=== PATIENT | female | born 1990 ===

== ENCOUNTER 2020-05-11 07:00 | Day surgery (SDC) | payer OTHER ==
[~2020-05-11 07:00] MED LIST: CHILDREN'S15 MG/1 M2; FOLIC ACID0.8 M1
== END 2020-05-11 13:00 | disposition home or self-care (01) ==
LOC: CIR.AMB 07:00 → U 07:00 → CIR.AMB 10:00
PROVIDERS: ATTEND Obstetrics & Gynecology Obstetrics
DX: N72 Inflammatory disease of cervix uteri (principal); Z20.828 Contact with and (suspected) exposure to other viral communicable diseases

== ENCOUNTER 2022-03-16 10:20 | Emergency (ER) | payer OTHER ==
[~2022-03-16] VITALS: Ht 165.1 cm; Wt 54.4 kg
== END 2022-03-17 00:25 | disposition home or self-care (01) ==
LOC: ER 10:20
DX: J98.01 Acute bronchospasm (principal); J38.5 Laryngeal spasm; Z87.898 Personal history of other specified conditions